=== PATIENT | female | born 1940 | race Caucasian/White ===

== ENCOUNTER 2018-08-07 16:36 | Inpatient (IN) | payer OTHER, MEDICARE ==
--- NOTE | 2018-08-07 16:46 | PDOC ---
Rapid Medical Evaluation Time Seen by Provider: 08/07/18 16:43 Medical Evaluation: Allergies Allergy/AdvReac Type Severity Reaction Status Date / Time Penicillins Allergy Verified 02/14/15 08:30 08/07/18 16:43 I have performed a brief in-person evaluation of this patient. The patient presents with a chief complaint of: dizziness, nausea and vomiting since Tuesday Also reports epigastric pain Pertinent physical exam findings are appears a little pale unlabored breathing abdomen flat, non tender I have ordered the following ekg, labs The patient will proceed to the Ed for further evaluation.
--- NOTE | 2018-08-07 17:24 | PDOC ---
History of Present Illness - General Chief Complaint: Pain Stated Complaint: ABD PAIN Time Seen by Provider: 08/07/18 16:43 Past History - Past Medical History Allergies/Adverse Reactions: Allergies Allergy/AdvReac Type Severity Reaction Status Date / Time Penicillins Allergy Verified 08/07/18 16:43 Home Medications: Ambulatory Orders Alprazolam [Xanax] 0.5 mg PO HS PRN #0 tablet 02/20/15 Amlodipine Besylate [Norvasc -] 5 mg PO DAILY #30 tablet 02/20/15 Ceftriaxone [Rocephin -] 1 gm IVPB DAILY #0 vial 02/20/15 Metoprolol Tartrate [Lopressor -] 25 mg PO BID #60 tablet 02/20/15 Sertraline HCl [Zoloft -] 100 mg PO DAILY #0 tablet 02/20/15 Anemia: No Asthma: No Cancer: No Cardiac Disorders: No COPD: No CHF: No Dementia: No Diabetes: No GI Disorders: Yes Disorders: Yes (incontinent) HTN: Yes Hypercholesterolemia: Yes Liver Disease: No Psychiatric Problems: Yes (depression,anxeity) Seizures: No Thyroid Disease: No - Surgical History Appendectomy: Yes Cholecystectomy: Yes - Suicide/Smoking/Psychosocial Hx Smoking History: Never smoked Have you smoked in the past 12 months: No Information on smoking cessation initiated: No Hx Alcohol Use: No Drug/Substance Use Hx: No Substance Use Type: None Hx Substance Use Treatment: No *Physical Exam - Vital Signs Last Vital Signs Temp Pulse Resp BP Pulse Ox 98.6 F 97 H 18 93/58 L 100 08/07/18 16:45 08/07/18 16:45 08/07/18 16:45 08/07/18 16:45 08/07/18 16:45 *DC/Admit/Observation/Transfer - Referrals Referrals: Jorge Kern MD [Primary Care Provider] - - Patient Instructions - Post Discharge Activity
--- NOTE | 2018-08-07 17:26 | PDOC ---
Attending Attestation - Resident Resident Name: SidneyHiro - ED Attending Attestation I have performed the following: I have examined & evaluated the patient, The case was reviewed & discussed with the resident, I agree w/resident's findings & plan, Exceptions are as noted - Medical Decision Making 08/07/18 17:26 I, Dr. Ilene Mujica, DO, attest that this document has been prepared under my direction and personally reviewed by me in its entirety. I further attest, that it accurately reflects all work, treatment, procedures and medical decision -making performed by me. 08/07/18 18:09 a/p: 78yo female with fever since tuesday and lower abd pain -hx of ascending cholangitis in the past -today with lower abd pain/R cva ttp -outpt labs shows wbc 22/uti/harry -concern for pyelo -will send ucx/blood cx -will admit for iv abx -discussed with Dr. Martinez who is admitting to dr. reed today -call placed to Dr. Reed 08/07/18 18:[address] Reed who accepts pt to service <Ilene Mujica - Last Filed: 08/07/18 18:17> - HPI HPI: 08/07/18 18:31 The patient is a 78 year old female, with a significant past medical history of hypertension and frequent UTIs, who presents to the emergency department with, 3 days of abdominal pain, lightheadedness, and dizziness. She describes her abdominal pain as suprapubic, sharp radiating to right flank. Patients son notes she had one episode of a fever 3 days ago with a Tmax of 102 degrees F which was resolved with Tylenol. Her last BM was today and noted to be darker than usual. The patient saw her PCP, Dr. Kern, and had outpatient labs done. She had a white count of 22, prompting her visit to the ER. She denies recent fevers, chills, or headache. She denies recent vomit, diarrhea or constipation. She denies recent dysuria, frequency, urgency or hematuria. She denies recent chest pain or shortness of breath. Allergies: Penicillins. Social history: Nonsmoker. Denies EtOH use and recreational drug use. Primary Care Physician: Dr. Jorge Kern - Physicial Exam PE: 08/07/18 18:32 Constitutional: Awake, alert, oriented. No acute distress. Head: Normocephalic. Atraumatic Eyes: PERRL. EOMI. Conjunctivae are not pale. ENT: Mucous membranes are moist and intact. Posterior pharynx without exudates or erythema. Uvula midline. Neck: Supple. Full ROM. No lymphadenopathy. Cardiovascular: Regular rate. Regular rhythm. S1, S2 regular. Distal pulses are 2+ and symmetric. Pulmonary/Chest: No evidence of respiratory distress. Clear to auscultation bilaterally No wheezing, rales or rhonchi. +Abdominal: Suprapubic tenderness. Thin. Soft and non-distended. No rebound, guarding or rigidity. No organomegaly. No palpable masses. Good bowel sounds. +Back: Right sided CVA tenderness. Rectal: Refer to resident Dr. Hiro Little's exam. Musculoskeletal: No edema. No cyanosis. No clubbing. Full range of motion in all extremities. No calf tenderness. Radial/pedal pulses are intact and 2+ bilaterally Skin: Skin is warm and dry. No petechiae. No purpura. Neurological: Alert and oriented to person, place, and time. Cranial nerves II -XII are grossly intact. Normal speech. Strength is grossly symmetric. No sensory deficits. Psychiatric: Good eye contact. Normal interaction, affect and behavior. <Osmar Fragoso - Last Filed: 08/07/18 18:33> Discharge Disposition - Discharge Dispostion Last Admission D/C Date: 02/20/15 Decision to Admit order: Yes <Ilene Mujica - Last Filed: 08/07/18 18:17> <Osmar Fragoso - Last Filed: 08/07/18 18:33> - Diagnosis Sepsis, Pyelonephritis - Discharge Dispostion Condition at time of disposition: Guarded - Referrals Referrals: Jorge Kern MD [Primary Care Provider] - - Patient Instructions - Post Discharge Activity Heart Score/ECG Review - ECG Intrepretation Comment:: 08/07/18 18:17 sinus, pacs, q waves septally, no acute st/t wave findings <Ilene Mujica - Last Filed: 08/07/18 18:17> Attestations - Attestations 08/07/18 18:32 Documentation prepared by Osmar Fragoso, acting as medical billing assistant for Ilene Mujica DO. <Osmar Fragoso - Last Filed: 08/07/18 18:33>
[2018-08-07] MEDS ORDERED: SODIUM CHLORIDE 1,000 ML IV STA ×2 (17:50→18:08)
[2018-08-07] MEDS ORDERED: CEFTRIAXONE 1,000 MG in DEXTROSE 5%-WATER - 50 ML IVPB ONE (18:09)
--- NOTE | 2018-08-07 18:19 | PDOC ---
History of Present Illness - General Chief Complaint: Pain Stated Complaint: ABD PAIN Time Seen by Provider: 08/07/18 16:43 History Source: Patient, Family (son translating) Past History - Past Medical History Allergies/Adverse Reactions: Allergies Allergy/AdvReac Type Severity Reaction Status Date / Time Penicillins Allergy Verified 08/07/18 16:43 Home Medications: Ambulatory Orders Alprazolam [Xanax] 0.5 mg PO HS PRN #0 tablet 02/20/15 Amlodipine Besylate [Norvasc -] 5 mg PO DAILY #30 tablet 02/20/15 Ceftriaxone [Rocephin -] 1 gm IVPB DAILY #0 vial 02/20/15 Metoprolol Tartrate [Lopressor -] 25 mg PO BID #60 tablet 02/20/15 Sertraline HCl [Zoloft -] 100 mg PO DAILY #0 tablet 02/20/15 Anemia: No Asthma: No Cancer: No Cardiac Disorders: No COPD: No CHF: No Dementia: No Diabetes: No GI Disorders: Yes Disorders: Yes (incontinent) HTN: Yes Hypercholesterolemia: Yes Liver Disease: No Psychiatric Problems: Yes (depression,anxeity) Seizures: No Thyroid Disease: No - Surgical History Appendectomy: Yes Cholecystectomy: Yes - Suicide/Smoking/Psychosocial Hx Smoking History: Never smoked Have you smoked in the past 12 months: No Information on smoking cessation initiated: No Hx Alcohol Use: No Drug/Substance Use Hx: No Substance Use Type: None Hx Substance Use Treatment: No Review of Systems - Review of Systems Constitutional: Yes: Fever Respiratory: No: Shortness of Breath Cardiac (ROS): No: Chest Pain, Palpitations ABD/GI: Yes: Constipated (chronic), Nausea, Poor Appetite, Other (dark stools since Tuesday). No: Diarrhea, Vomiting : Yes: Flank Pain (right sided). No: Burning, Dysuria, Frequency, Hematuria Musculoskeletal: Yes: Back Pain (right sided) Neurological: Yes: Weakness (generalized) *Physical Exam - Vital Signs Last Vital Signs Temp Pulse Resp BP Pulse Ox 98.6 F 97 H 18 93/58 L 100 08/07/18 16:45 08/07/18 16:45 08/07/18 16:45 08/07/18 16:45 08/07/18 16:45 - Physical Exam General Appearance: Yes: Nourished, Appropriately Dressed, Apparent Distress HEENT: positive: EOMI Respiratory/Chest: positive: Lungs Clear, Normal Breath Sounds. negative: Crackles Cardiovascular: positive: Regular Rhythm, Regular Rate, S1, S2. negative: Edema , JVD, Murmur Vascular Pulses: Dorsalis-Pedis (R): 4+, Doralis-Pedis (L): 4+ Gastrointestinal/Abdominal: positive: Flat, Soft, Tenderness (suprapubic and RLQ ). negative: Pulsatile Mass, Distended, Guarding, Rebound Rectal Exam: positive: heme negative stool, normal exam. negative: decreased tone, hemorrhoids Musculoskeletal: positive: CVA Tenderness (right sided) Integumentary: positive: Normal Color, Dry, Warm. negative: Jaundice Neurologic: positive: Fully Oriented, Alert, Normal Mood/Affect, Normal Response ED Treatment Course - ADDITIONAL ORDERS Additional order review: Laboratory Results 08/07/18 17:30 Stool Occult Blood Negative - RADIOLOGY Radiology Studies Ordered: Category Date Time Status SPIRAL- RENAL-STONE CT [CT] Stat CT Scan 08/07/18 18:12 Ordered CHEST X-RAY PORTABLE* [RAD] Stat Radiology 08/07/18 18:07 Ordered *DC/Admit/Observation/Transfer Diagnosis at time of Disposition: Pyelonephritis Sepsis Qualifiers: Sepsis type: sepsis due to unspecified organism Qualified Code(s): A41.9 - Sepsis, unspecified organism - Discharge Dispostion Condition at time of disposition: Guarded Decision to Admit order: Yes - Referrals Referrals: Jorge Kern MD [Primary Care Provider] - - Patient Instructions - Post Discharge Activity
[2018-08-07] MEDS ORDERED: CEFTRIAXONE 1 GM/50 ML BAG ONE (18:27)
[2018-08-07] MEDS ORDERED: KCL 10 MEQ IVPB 10 MEQ/100 ML INFUS.BAG IVPB ONE (20:22)
[2018-08-07] MEDS: POTASSIUM CHLORIDE 10 MEQ in DEXTROSE 5%-NORMAL SALINE 1,000 ML IVPB SCH (20:33)
[2018-08-07] MEDS: ALPRAZolam 0.25 MG TABLET PO SCH (22:33)
[2018-08-07] MEDS ORDERED: ALPRAZolam 0.25 MG TABLET ONE (22:34)
[2018-08-08 07:24] LABS: HEMATOCRIT 33.1 % (32.4-45.2); HEMOGLOBIN 10.9 GM/dL (10.7-15.3); MCH 31.2 pg (25.7-33.7); MEAN CELL VOLUME 94.6 fl (80-96); MEAN PLT VOLUME 9.8 fl (7.5-11.1); PLATELET COUNT 92 K/MM3 (134-434); RDW 14.2 % (11.6-15.6); WHITE BLOOD COUNT 24.6 K/mm3 (4.0-10.0)
[2018-08-08 07:54] LABS: ALBUMIN 2.6 g/dl (3.4-5.0); ALK PHOS 101 U/L (45-117); ANION GAP 11 MMOL/L (8-16); BILIRUBIN,TOTAL 0.6 mg/dL (0.2-1); BLOOD UREA NITROGEN 55 mg/dL (7-18); CALCIUM 8.2 mg/dL (8.5-10.1); CHLORIDE 108 mmol/L (98-107); CO2 21 mmol/L (21-32); CREATININE 2.1 mg/dL (0.55-1.3); GLUCOSE,RANDOM 65 mg/dL (74-106); POTASSIUM 3.2 mmol/L (3.5-5.1); SGOT/AST 41 U/L (15-37); SGPT/ALT 79 U/L (13-61); SODIUM 140 mmol/L (136-145); TOT PROT 5.4 g/dl (6.4-8.2)
[2018-08-08] MEDS ORDERED: VANCOMYCIN 1 GRAM (PRE-DOCKED) 1,000 MG/250 ML BAG IVPB ONE ×2 (08:48→09:13)
[2018-08-08] MEDS ORDERED: POTASSIUM CHLORIDE TABS 20 MEQ TABLET.ER (FP) PO ONE ×2 (09:15→09:32)
[2018-08-08] MEDS ORDERED: CEFTRIAXONE 1 GM in DEXTROSE 5%-WATER - 50 ML IVPB SCH (10:00)
[2018-08-08] MEDS ORDERED: ALPRAZolam 0.25 MG TABLET ONE (11:32)
[2018-08-08] MEDS: ALPRAZolam 0.25 MG TABLET PO SCH ×2 (11:43→21:08)
[2018-08-08] MEDS ORDERED: CEFTRIAXONE 1 GM in DEXTROSE 5%-WATER - 100 ML IVPB ONE (12:12)
--- NOTE | 2018-08-08 12:12 | PN ---
Progress Note (short form) - Note Progress Note: ID Consult dictated Gram Negative bacteremia/ sepsis secondary to source UTI Leukocytosis/ thrombocytopenia secondary to sepsis PCN allergy Pending c/s empiric ceftriaxone
[2018-08-08] MEDS: CEFTRIAXONE 2 GM in DEXTROSE 5%-WATER 100 ML IVPB SCH (12:53)
--- NOTE | 2018-08-08 13:00 | CONS ---
DATE OF CONSULTATION: DATE OF DICTATION: 08/08/2018 HISTORY: The patient is an 78-year-old female who is evaluated for gram-negative sepsis. She presented to the hospital with complaints of abdominal pain, nausea, vomiting, dizziness, and fever for approximately 2 days prior to admission. In the emergency room, she was noted to have suprapubic and flank pain. A CT scan of the abdomen and pelvis was performed and showed right hydronephrosis without an obstructing stone visualized. In addition, there were multiple bilateral nonobstructing stones. Her course was complicated by low-grade fever, markedly elevated white blood cell count, and thrombocytopenia. At the present time, she is awake and alert. She is Malay speaking. She complains of suprapubic and bilateral flank pain. She denies any dysuria or hematuria. According to the notes, she has had a history of urinary tract infections in the past. She is status post cholecystectomy. She was hospitalized in 2015 with gram-negative sepsis secondary to biliary tract source. PAST MEDICAL HISTORY: Positive for hypertension, recurrent urinary tract infections, hyperlipidemia, osteoporosis, anxiety, depression. PAST SURGICAL HISTORY: Status post appendectomy and cholecystectomy. ALLERGIES: PENICILLIN. She had developed a rash limited to the left upper extremity years ago after receiving PENICILLIN. MEDICATIONS: Include Xanax, Norvasc, Lopressor, Zoloft. SOCIAL HISTORY: Lives at home. She is Malay speaking. She is nonsmoker, nondrinker. SYSTEMS REVIEW: Neurologic: No loss of consciousness, seizure activity, focal weakness. Cardiac: Negative chest pain or palpitations. Respiratory: Negative cough or sputum production. Gastrointestinal: Positive for nausea and vomiting. No diarrhea. Genitourinary: As per HPI. LABORATORY DATA: White blood cell count 24.6, hematocrit 33.1, platelet count 92, BUN 55, creatinine 2.1, total bilirubin 0.6, alkaline phosphatase 101, AST 41. Chest x-ray negative for acute infiltrate. PHYSICAL EXAMINATION: General: She is an elderly female. She is supine on the stretcher in the emergency room. She is in no acute distress. Not acutely toxic appearing. Vital Signs: Temperature 99, blood pressure 106/55, pulse 72 and regular, respirations 18 per minute. HEENT: Sclerae anicteric. Dry mucous membranes. Heart: Sounds S1, S2. Lungs: Clear. Abdomen: Soft. There is suprapubic tenderness and slight bilateral flank tenderness to palpation. Extremities: Negative for edema. IMPRESSION: 1. Gram-negative bacteremia, sepsis secondary to urinary tract source. 2. Urinary tract infection. 3. Marked leukocytosis. 4. Thrombocytopenia likely secondary to sepsis. 5. PENICILLIN allergy. 6. Renal insufficiency. PLAN: Pending sepsis workup. Continue empiric ceftriaxone. Previous blood and urine cultures have grown Escherichia coli sensitive to ceftriaxone. She has tolerated cephalosporins in the past. We will follow. Thank you for the kind referral. KATIE SO M.D. [id number]
--- NOTE | 2018-08-08 16:28 | HP ---
Admitting History and Physical - Primary Care Physician PCP: Zac Scott - Admission Chief Complaint: nausea & Vomiting w/ weakness History of Present Illness: 78 YOF community dweling w/ Hx of UTI; Htn; renal stones who began to feel ill on 08/06/18, consisting of malaise, n-v, progressing weakness. This was a marked change from baseline though she suffers fom chronic abd pains well known to her PCP. She has past Hx of renal stones & UTI (2nd E Coli), and was determined to have mesenteric ischemia (the cause of her abd pains)> She was admitted a year ago for what was described as ascending cholangitis but this was not demonstrated on MRCP. She declined to have a ERCP at the time. She c/o some low back pains, perhaps some dysuria. She eats poorly at her baseline. 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 Suazo 2011), Upper Endoscopy - Smoking History Smoking history: Never smoked Have you smoked in the past 12 months: No - Alcohol/Substance Use Hx Alcohol Use: No - Social History Usual Living Arrangement: Yes: With Spouse ADL: Independent History of Recent Travel: No Other Social History: lives on her own with family support (help in shopping); she cares for her demented . Home Medications - Allergies Allergies/Adverse Reactions: Allergies Allergy/AdvReac Type Severity Reaction Status Date / Time Penicillins Allergy Verified 08/07/18 16:43 - Home Medications Home Medications: Ambulatory Orders Alprazolam [Xanax] 0.5 mg PO HS PRN #0 tablet 02/20/15 Amlodipine Besylate [Norvasc -] 5 mg PO DAILY #30 tablet 02/20/15 Sertraline HCl [Zoloft -] 100 mg PO DAILY #0 tablet 02/20/15 Aspirin [Aspirin EC] 81 mg PO DAILY 08/07/18 Atorvastatin Ca [Lipitor] 20 mg PO HS 08/07/18 Family Disease History - Family Disease History Family Disease History: Other: Father (TB at 40yrs ), Mother (Intestinal disease 59yrs) Review of Systems - Review of Systems Constitutional: reports: Malaise Eyes: reports: No Symptoms HENT: reports: No Symptoms Neck: reports: No Symptoms Cardiovascular: reports: No Symptoms Respiratory: reports: No Symptoms Gastrointestinal: reports: Abdominal Pain, Vomiting Genitourinary: reports: Flank Pain Breasts: reports: No Symptoms Reported Musculoskeletal: reports: Back Pain Integumentary: reports: No Symptoms Neurological: reports: No Symptoms Endocrine: reports: No Symptoms Hematology/Lymphatic: reports: No Symptoms Psychiatric: reports: Anxiety Physical Examination Vital Signs: Vital Signs Temperature 99.4 F 08/08/18 15:42 Pulse Rate 74 08/08/18 15:42 Respiratory Rate 18 08/08/18 15:42 Blood Pressure 140/79 08/08/18 15:42 O2 Sat by Pulse Oximetry (%) 98 08/08/18 15:42 Findings/Remarks: found in ER bed-awake; anxious but alert skin--no discoloration; rash head--NC eyes--midline; EOMI; anicteric oral--mucosal with normal appearance/moisture; no lesions appreciated neck--supple, no masses, nodes, bruits lungs--dimnished BS; grossly clear heart--RR breasts--(deferred to PCP) abd--soft, BS+, old surg scars; + epigastric non young tenderness; no HSM back--no definite CVAT ext--no CCE; ROM painless; no gross limits; no deformities; DP's 2+ in both feet ; no atrophy neuro--awake; alert; responsive, good eye contact; speech seemed fluent & coherent; purposeful movements of all Extrems. No gross motor/sensory deficits; no path reflexes noted; no tremors or gross rigidity; mood anxious Labs: CBC, BMP 08/08/18 06:25 08/08/18 06:25 Laboratory Tests 08/07/18 08/07/18 08/08/18 17:30 18:00 06:25 WBC 24.6 H RBC 3.50 L Hgb 10.9 Hct 33.1 MCV 94.6 MCH 31.2 MCHC 33.0 RDW 14.2 Plt Count 92 L MPV 9.8 Sodium Potassium Chloride Carbon Dioxide Anion Gap BUN Creatinine Creat Clearance w eGFR Random Glucose Lactic Acid 1.6 Calcium Total Bilirubin AST ALT Alkaline Phosphatase Total Protein Albumin Stool Occult Blood Negative 08/08/18 06:25 WBC RBC Hgb Hct MCV MCH MCHC RDW Plt Count MPV Sodium 140 Potassium 3.2 L Chloride 108 H Carbon Dioxide 21 Anion Gap 11 BUN 55 H Creatinine 2.1 H Creat Clearance w eGFR 22.66 Random Glucose 65 L Lactic Acid Calcium 8.2 L Total Bilirubin 0.6 AST 41 H ALT 79 H Alkaline Phosphatase 101 Total Protein 5.4 L Albumin 2.6 L Stool Occult Blood Imaging - Results Chest X-ray: Report Reviewed Cat Scan: Report Reviewed Problem List - Problems (1) Neutrophilic leukocytosis Assessment/Plan: in connection with state of infection; source being the urine: PLAN: cultures obtained and will get IV ABS Code(s): D72.9 - DISORDER OF WHITE BLOOD CELLS, UNSPECIFIED (2) UTI (urinary tract infection), bacterial Assessment/Plan: previously due to GM negative organism that was sensitive to conventional Abs. PLAN: IV Rocephin for now Code(s): N39.0 - URINARY TRACT INFECTION, SITE NOT SPECIFIED; A49.9 - BACTERIAL INFECTION, UNSPECIFIED (3) Bacteremia Assessment/Plan: gram negative organism; type to be determined PLAN: ID eval Code(s): R78.81 - BACTEREMIA (4) Hypertension Assessment/Plan: BP now low; will hold BP lowering drugs Code(s): I10 - ESSENTIAL (PRIMARY) HYPERTENSION Qualifiers: Hypertension type: essential hypertension Qualified Code(s): I10 - Essential (primary) hypertension (5) Renal insufficiency Assessment/Plan: with superimposed dehydration; PLAN: IVF Code(s): N28.9 - DISORDER OF KIDNEY AND URETER, UNSPECIFIED (6) Hyponatremia Assessment/Plan: corrected Code(s): E87.1 - HYPO-OSMOLALITY AND HYPONATREMIA (7) Hypokalemia Assessment/Plan: perhaps due to insufficient fluid intake; together with vomiting; PLAN: replenish Code(s): E87.6 - HYPOKALEMIA (8) Thrombocytopenia Assessment/Plan: about 90K today;perhaps due to state of infection; will follow Code(s): D69.6 - THROMBOCYTOPENIA, UNSPECIFIED (9) Renal calculi Assessment/Plan: non obstructing as demonstrated on abd CT. She has long Hx of recurrent stones and was seen by Urology (Stan) in the past Code(s): N20.0 - CALCULUS OF KIDNEY (10) Hydronephrosis Assessment/Plan: minimal if mild on Rt ureter (see CT report) Code(s): N13.30 - UNSPECIFIED HYDRONEPHROSIS Qualifiers: Hydronephrosis type: unspecified Qualified Code(s): N13.30 - Unspecified hydronephrosis (11) Pain, abdominal, epigastric Assessment/Plan: more so when palpated; but does c/o episodic abd pains perhaps worse when she eats to suggest mesenteric insufficiency Code(s): R10.13 - EPIGASTRIC PAIN (12) Elevated liver enzymes Assessment/Plan: not new; has hx of questionable cholangitis; but is also on statin; which will be held. Abd CT does not show any striking abdormalities inthe liver Code(s): R74.8 - ABNORMAL LEVELS OF OTHER SERUM ENZYMES (13) Lipidemia Assessment/Plan: has been on statin which will now be held given high LFTs Code(s): E78.5 - HYPERLIPIDEMIA, UNSPECIFIED Qualifiers: Hyperlipidemia type: unspecified Qualified Code(s): E78.5 - Hyperlipidemia , unspecified (14) Protein calorie malnutrition Assessment/Plan: is under weight; eats poorly; and has low serum proteins Code(s): E46 - UNSPECIFIED PROTEIN-CALORIE MALNUTRITION Qualifiers: Protein-calorie malnutrition severity: mild Qualified Code(s): E44.1 - Mild protein-calorie malnutrition (15) Anxiety and depression Assessment/Plan: has been given Xanax & Zoloft. Will stop Zoloft given its anorectic effects Code(s): F41.8 - OTHER SPECIFIED ANXIETY DISORDERS (16) Feeding difficulty Assessment/Plan: may be due to chronic GI pains; GERD; and depressive dz. Code(s): R63.3 - FEEDING DIFFICULTIES (17) Multiple thyroid nodules Assessment/Plan: on previous US; affecting the Rt lobe; is euthyroid with NL TSH. Code(s): E04.2 - NONTOXIC MULTINODULAR GOITER Assessment/Plan weak debilitated 78 YOF with bacteremia & likely sepsis ~~~~~~~~~~~~~~~~~~~~~~~~~~~~~~~~~ Dr Scott
[2018-08-08] MEDS ORDERED: PT OWN MED DRAWER 7, Y5N ONE (17:07)
[2018-08-08] MEDS: POTASSIUM CHLORIDE 10 MEQ in DEXTROSE 5%-NORMAL SALINE 1,000 ML IVPB SCH ×2 (17:10→17:39)
[2018-08-08] MEDS ORDERED: PNEUMOC 13-VAL CONJ-DIP CRM/PF 0.5 ML DISP.SYRIN IM ONE (17:15)
[2018-08-08] MEDS: amLODIPine BESYLATE 2.5 MG TABLET (FP) PO SCH (18:25)
[2018-08-08] MEDS: AMINO ACIDS/PROTEIN HYDROLYS 30 ML LIQUID.PKT PO SCH (18:25)
[2018-08-09 07:28] LABS: HEMATOCRIT 28.6 % (32.4-45.2); HEMOGLOBIN 9.4 GM/dL (10.7-15.3); MCHC 32.9 g/dl (32.0-36.0); MEAN CELL VOLUME 94.3 fl (80-96); PLATELET COUNT 85 K/MM3 (134-434); RBC 3.04 M/mm3 (3.60-5.2); RDW 14.1 % (11.6-15.6); WHITE BLOOD COUNT 15.8 K/mm3 (4.0-10.0)
[2018-08-09 07:40] LABS: ALBUMIN 2.1 g/dl (3.4-5.0); ALK PHOS 98 U/L (45-117); ANION GAP 8 MMOL/L (8-16); BILIRUBIN,TOTAL 0.3 mg/dL (0.2-1); BLOOD UREA NITROGEN 34 mg/dL (7-18); CALCIUM 7.6 mg/dL (8.5-10.1); CHLORIDE 112 mmol/L (98-107); CO2 22 mmol/L (21-32); CREATININE 1.5 mg/dL (0.55-1.3); GLUCOSE,RANDOM 99 mg/dL (74-106); POTASSIUM 3.5 mmol/L (3.5-5.1); SGOT/AST 26 U/L (15-37); SGPT/ALT 51 U/L (13-61); SODIUM 142 mmol/L (136-145); TOT PROT 4.8 g/dl (6.4-8.2)
--- NOTE | 2018-08-09 09:53 | EKG ---
Test Reason : Blood Pressure : / mmHG Vent. Rate : 091 BPM Atrial Rate : 091 BPM P-R Int : 162 ms QRS Dur : 074 ms QT Int : 364 ms P-R-T Axes : 051 -09 052 degrees QTc Int : 447 ms SINUS RHYTHM WITH PREMATURE SUPRAVENTRICULAR COMPLEXES SEPTAL INFARCT (CITED ON OR BEFORE 14-FEB-2015) ABNORMAL ECG WHEN COMPARED WITH ECG OF 14-FEB-2015 09:29, PREMATURE SUPRAVENTRICULAR COMPLEXES ARE NOW PRESENT Confirmed by TRE EVANS, NESTOR ([id number]) on 08/09/2018 9:53:19 AM Referred By: Confirmed By:NESTOR TOLEDO MD
[2018-08-09] MEDS: PANTOPRAZOLE 40 MG TABLET (FP) PO SCH (10:07)
[2018-08-09] MEDS: amLODIPine BESYLATE 2.5 MG TABLET (FP) PO SCH (10:07)
[2018-08-09] MEDS: ESCITALOPRAM OXALATE 20 MG TABLET (FP) PO SCH (10:07)
[2018-08-09] MEDS: POTASSIUM CHLORIDE 10 MEQ in DEXTROSE 5%-NORMAL SALINE 1,000 ML IVPB SCH ×3 (10:07→23:52)
[2018-08-09] MEDS: AMINO ACIDS/PROTEIN HYDROLYS 30 ML LIQUID.PKT PO SCH ×2 (10:07→18:22)
[2018-08-09] MEDS: ALPRAZolam 0.25 MG TABLET PO SCH ×2 (10:07→22:10)
--- NOTE | 2018-08-09 10:09 | PN ---
Progress Note, Physician History of Present Illness: Awake, alert C/O epigastric pain which according to son is chronic in nature No c/o dysuria No fever/ chills BC LF Tolerating cephalosporin w/o adverse rxn - Current Medication List Current Medications: Active Medications Alprazolam (Xanax -) 0.25 mg PO BID [facility] Last Admin: 08/08/18 21:08 Dose: 0.25 mg Amino Acids (Prosource No Carb Liquid Pkt) 30 ml PO BID@0800,1730 [facility] Last Admin: 08/08/18 18:25 Dose: 30 ml Amlodipine Besylate (Norvasc -) 2.5 mg PO DAILY [facility] Last Admin: 08/08/18 18:25 Dose: 2.5 mg Escitalopram Oxalate (Lexapro -) 20 mg PO DAILY [facility] Ceftriaxone Sodium 2 gm/ (Dextrose) 100 mls @ 200 mls/hr IVPB DAILY [facility]; Protocol Last Admin: 08/08/18 12:53 Dose: 200 mls/hr Potassium Chloride 10 meq/ (Dextrose/Sodium Chloride) 1,005 mls @ 75 mls/hr IVPB Q13H [facility] Last Admin: 08/08/18 17:39 Dose: 75 mls/hr Pantoprazole Sodium (Protonix -) 40 mg PO DAILY [facility] - Objective Vital Signs: Vital Signs Temperature 98.1 F 08/09/18 06:00 Pulse Rate 62 08/09/18 06:00 Respiratory Rate 18 08/09/18 06:00 Blood Pressure 112/63 08/09/18 06:00 O2 Sat by Pulse Oximetry (%) 98 08/08/18 15:42 Constitutional: Yes: No Distress Eyes: Yes: Conjunctiva Clear Cardiovascular: Yes: Regular Rate and Rhythm, S1, S2 Respiratory: Yes: CTA Bilaterally Gastrointestinal: Yes: Normal Bowel Sounds, Soft, Other (no suprapubic tenderness). No: Tenderness Genitourinary: Yes: CVA Tenderness - Right Edema: No Labs: CBC, BMP 08/09/18 06:30 08/09/18 06:30 Assessment/Plan Gram Negative bacteremia/ sepsis UTI/sepsis secondary to source Leukocytosis improved Thrombocytopenia Azotemia- improved PCN allergy Await c/s Continue empiric ceftriaxone
[2018-08-09] MEDS: CEFTRIAXONE 2 GM in DEXTROSE 5%-WATER 100 ML IVPB SCH (12:36)
--- NOTE | 2018-08-09 16:12 | PN ---
Progress Note (short form) - Note Progress Note: Current Medications Acetaminophen (Tylenol -) 650 mg PO Q6H PRN PRN Reason: PAIN SCALE 1-5 Alprazolam (Xanax -) 0.25 mg PO BID [facility] Last Admin: 08/09/18 10:07 Dose: 0.25 mg Amino Acids (Prosource No Carb Liquid Pkt) 30 ml PO BID@0800,1730 [facility] Last Admin: 08/09/18 10:07 Dose: 30 ml Amlodipine Besylate (Norvasc -) 2.5 mg PO DAILY [facility] Last Admin: 08/09/18 10:07 Dose: 2.5 mg Docusate Sodium (Colace -) 100 mg PO BID [facility] Escitalopram Oxalate (Lexapro -) 20 mg PO DAILY [facility] Last Admin: 08/09/18 10:07 Dose: 20 mg Ceftriaxone Sodium 2 gm/ (Dextrose) 100 mls @ 200 mls/hr IVPB DAILY [facility]; Protocol Last Admin: 08/09/18 12:36 Dose: 200 mls/hr Potassium Chloride 10 meq/ (Dextrose/Sodium Chloride) 1,005 mls @ 75 mls/hr IVPB Q13H [facility] Last Admin: 08/09/18 10:07 Dose: Not Given Pantoprazole Sodium (Protonix -) 40 mg PO DAILY [facility] Last Admin: 08/09/18 10:07 Dose: 40 mg Laboratory Results - last 24 hr 08/09/18 08/09/18 06:30 06:30 WBC 15.8 H RBC 3.04 L Hgb 9.4 L Hct 28.6 L MCV 94.3 MCH 31.0 MCHC 32.9 RDW 14.1 Plt Count 85 L MPV 10.0 Sodium 142 Potassium 3.5 Chloride 112 H Carbon Dioxide 22 Anion Gap 8 BUN 34 H Creatinine 1.5 H Creat Clearance w eGFR 33.41 Random Glucose 99 Calcium 7.6 L Total Bilirubin 0.3 AST 26 ALT 51 Alkaline Phosphatase 98 Total Protein 4.8 L Albumin 2.1 L Vital Signs Temperature 98.5 F 08/09/18 14:29 Pulse Rate 68 08/09/18 14:29 Respiratory Rate 18 08/09/18 14:29 Blood Pressure 115/62 08/09/18 14:29 O2 Sat by Pulse Oximetry (%) 97 08/09/18 09:00 CC; some abd pain (not new) ``````````````````````````` skin--good color eyes--anicteric heart--RR lungs--clear abd--soft, BS+ ext--no edema neuro--alert, lucid; speech is clear; moves all extrem's ````````````````````````````````````````````````` Summ > Gm neg sepsis--seems to be under control; sensitivities are pending; cont IV Ceph (see ID note) > Htn--BP okay now > dehydration--improved renal functions w/ IVF; cont IVF > Anemia--drop from 08/08; possibly dilutional; will check Iron; B12; stools > Low PLT--since admission; count still sufficiently high; will follow daily > abd pain--chronic? due to longstanding mesenteric ischemia > High LFTs--resolved; is off statin ~~~~~~~~~~~~~~~~~~~ Dr Scott Problem List - Problems (1) Neutrophilic leukocytosis Code(s): D72.9 - DISORDER OF WHITE BLOOD CELLS, UNSPECIFIED (2) UTI (urinary tract infection), bacterial Code(s): N39.0 - URINARY TRACT INFECTION, SITE NOT SPECIFIED; A49.9 - BACTERIAL INFECTION, UNSPECIFIED (3) Bacteremia Code(s): R78.81 - BACTEREMIA (4) Hypertension Code(s): I10 - ESSENTIAL (PRIMARY) HYPERTENSION Qualifiers: Hypertension type: essential hypertension Qualified Code(s): I10 - Essential (primary) hypertension (5) Renal insufficiency Code(s): N28.9 - DISORDER OF KIDNEY AND URETER, UNSPECIFIED (6) Hyponatremia Code(s): E87.1 - HYPO-OSMOLALITY AND HYPONATREMIA (7) Hypokalemia Code(s): E87.6 - HYPOKALEMIA (8) Thrombocytopenia Code(s): D69.6 - THROMBOCYTOPENIA, UNSPECIFIED (9) Renal calculi Code(s): N20.0 - CALCULUS OF KIDNEY (10) Hydronephrosis Code(s): N13.30 - UNSPECIFIED HYDRONEPHROSIS Qualifiers: Hydronephrosis type: unspecified Qualified Code(s): N13.30 - Unspecified hydronephrosis (11) Pain, abdominal, epigastric Code(s): R10.13 - EPIGASTRIC PAIN (12) Elevated liver enzymes Code(s): R74.8 - ABNORMAL LEVELS OF OTHER SERUM ENZYMES (13) Lipidemia Code(s): E78.5 - HYPERLIPIDEMIA, UNSPECIFIED Qualifiers: Hyperlipidemia type: unspecified Qualified Code(s): E78.5 - Hyperlipidemia , unspecified (14) Protein calorie malnutrition Code(s): E46 - UNSPECIFIED PROTEIN-CALORIE MALNUTRITION Qualifiers: Protein-calorie malnutrition severity: mild Qualified Code(s): E44.1 - Mild protein-calorie malnutrition (15) Anxiety and depression Code(s): F41.8 - OTHER SPECIFIED ANXIETY DISORDERS (16) Feeding difficulty Code(s): R63.3 - FEEDING DIFFICULTIES (17) Multiple thyroid nodules Code(s): E04.2 - NONTOXIC MULTINODULAR GOITER
[2018-08-09 16:31] VITALS: BMI 19.5
[2018-08-09] MEDS: DOCUSATE SODIUM 100 MG CAPSULE (FP) PO SCH (22:10)
[2018-08-10] MEDS ORDERED: PT OWN MED DRAWER 7, Y5N ONE ×2 (09:10→17:10)
[2018-08-10] MEDS: ESCITALOPRAM OXALATE 20 MG TABLET (FP) PO SCH (09:22)
[2018-08-10] MEDS: ALPRAZolam 0.25 MG TABLET PO SCH ×2 (09:22→22:18)
[2018-08-10] MEDS: amLODIPine BESYLATE 2.5 MG TABLET (FP) PO SCH (09:22)
[2018-08-10] MEDS: POTASSIUM CHLORIDE 10 MEQ in DEXTROSE 5%-NORMAL SALINE 1,000 ML IVPB SCH ×3 (09:22→22:14)
[2018-08-10] MEDS: DOCUSATE SODIUM 100 MG CAPSULE (FP) PO SCH ×2 (09:22→22:18)
[2018-08-10] MEDS: AMINO ACIDS/PROTEIN HYDROLYS 30 ML LIQUID.PKT PO SCH ×2 (09:22→17:11)
[2018-08-10] MEDS: PANTOPRAZOLE 40 MG TABLET (FP) PO SCH (09:23)
[2018-08-10] MEDS: CEFTRIAXONE 2 GM in DEXTROSE 5%-WATER 100 ML IVPB SCH (09:23)
[2018-08-10] MEDS: ACETAMINOPHEN 325 MG TABLET (FP) PO PRN (09:32)
--- NOTE | 2018-08-10 16:38 | PN ---
Progress Note, Physician History of Present Illness: Awake, alert C/O chronic epigastric pain No c/o dysuria No fever/ chills BC E.coli Tolerating cephalosporin w/o adverse rxn - Current Medication List Current Medications: Active Medications Acetaminophen (Tylenol -) 650 mg PO Q6H PRN PRN Reason: PAIN SCALE 1-5 Last Admin: 08/10/18 09:32 Dose: 650 mg Alprazolam (Xanax -) 0.25 mg PO BID [facility] Last Admin: 08/10/18 09:22 Dose: 0.25 mg Amino Acids (Prosource No Carb Liquid Pkt) 30 ml PO BID@0800,1730 [facility] Last Admin: 08/10/18 09:22 Dose: 30 ml Amlodipine Besylate (Norvasc -) 2.5 mg PO DAILY [facility] Last Admin: 08/10/18 09:22 Dose: 2.5 mg Docusate Sodium (Colace -) 100 mg PO BID [facility] Last Admin: 08/10/18 09:22 Dose: 100 mg Escitalopram Oxalate (Lexapro -) 20 mg PO DAILY [facility] Last Admin: 08/10/18 09:22 Dose: 20 mg Ceftriaxone Sodium 2 gm/ (Dextrose) 100 mls @ 200 mls/hr IVPB DAILY [facility]; Protocol Last Admin: 08/10/18 09:23 Dose: 200 mls/hr Potassium Chloride 10 meq/ (Dextrose/Sodium Chloride) 1,005 mls @ 75 mls/hr IVPB Q13H [facility] Last Admin: 08/10/18 09:22 Dose: Not Given Pantoprazole Sodium (Protonix -) 40 mg PO DAILY [facility] Last Admin: 08/10/18 09:23 Dose: 40 mg - Objective Vital Signs: Vital Signs Temperature 98.2 F 08/10/18 14:11 Pulse Rate 62 08/10/18 14:11 Respiratory Rate 18 08/10/18 14:11 Blood Pressure 113/68 08/10/18 14:11 O2 Sat by Pulse Oximetry (%) 97 08/09/18 21:00 Constitutional: Yes: No Distress Eyes: Yes: Conjunctiva Clear Cardiovascular: Yes: Regular Rate and Rhythm, S1, S2 Respiratory: Yes: CTA Bilaterally Gastrointestinal: Yes: Normal Bowel Sounds, Soft, Tenderness, Other (+ epigastric tenderness) Edema: No Labs: CBC, BMP 08/09/18 06:30 10/10/18 06:30 Assessment/Plan Gram Negative bacteremia/ sepsis UTI/sepsis secondary to source Leukocytosis improved Thrombocytopenia Azotemia- improved PCN allergy Continue ceftriaxone
--- NOTE | 2018-08-10 16:54 | PN ---
Progress Note (short form) - Note Progress Note: Current Medications Acetaminophen (Tylenol -) 650 mg PO Q6H PRN PRN Reason: PAIN SCALE 1-5 Last Admin: 08/10/18 09:32 Dose: 650 mg Alprazolam (Xanax -) 0.25 mg PO BID [facility] Last Admin: 08/10/18 09:22 Dose: 0.25 mg Amino Acids (Prosource No Carb Liquid Pkt) 30 ml PO BID@0800,1730 [facility] Last Admin: 08/10/18 09:22 Dose: 30 ml Amlodipine Besylate (Norvasc -) 2.5 mg PO DAILY [facility] Last Admin: 08/10/18 09:22 Dose: 2.5 mg Docusate Sodium (Colace -) 100 mg PO BID [facility] Last Admin: 08/10/18 09:22 Dose: 100 mg Escitalopram Oxalate (Lexapro -) 20 mg PO DAILY [facility] Last Admin: 08/10/18 09:22 Dose: 20 mg Ceftriaxone Sodium 2 gm/ (Dextrose) 100 mls @ 200 mls/hr IVPB DAILY [facility]; Protocol Last Admin: 08/10/18 09:23 Dose: 200 mls/hr Potassium Chloride 10 meq/ (Dextrose/Sodium Chloride) 1,005 mls @ 75 mls/hr IVPB Q13H [facility] Last Admin: 08/10/18 09:22 Dose: Not Given Pantoprazole Sodium (Protonix -) 40 mg PO DAILY [facility] Last Admin: 08/10/18 09:23 Dose: 40 mg Vital Signs Temperature 98.2 F 08/10/18 14:11 Pulse Rate 62 08/10/18 14:11 Respiratory Rate 18 08/10/18 14:11 Blood Pressure 113/68 08/10/18 14:11 O2 Sat by Pulse Oximetry (%) 97 08/09/18 21:00 CC; constipated ``````````````````````````` skin--good color eyes--anicteric heart--RR lungs--clear abd--soft, BS+; minimal tenderness ext--no edema neuro--alert, lucid; speech is clear; moves all extrem's ````````````````````````````````````````````````` Summ > Gm neg Uro-sepsis--fully sensitive E Coli; cont IV Ceph (see ID note); will get Urology eval as well given presence of [place] > constipation--add Miralax > Htn--BP okay now > dehydration--check BUN/Cr; cont IVF > Anemia--dilutional; will check Iron; B12; stools > Low PLT--since admission; count still sufficiently high > abd pain--chronic? due to longstanding mesenteric ischemia > High LFTs--resolved; is off statin for now ~~~~~~~~~~~~~~~~~~~ Dr Tyler Problem List - Problems (1) Neutrophilic leukocytosis Code(s): D72.9 - DISORDER OF WHITE BLOOD CELLS, UNSPECIFIED (2) UTI (urinary tract infection), bacterial Code(s): N39.0 - URINARY TRACT INFECTION, SITE NOT SPECIFIED; A49.9 - BACTERIAL INFECTION, UNSPECIFIED (3) Bacteremia Code(s): R78.81 - BACTEREMIA (4) Hypertension Code(s): I10 - ESSENTIAL (PRIMARY) HYPERTENSION Qualifiers: Hypertension type: essential hypertension Qualified Code(s): I10 - Essential (primary) hypertension (5) Renal insufficiency Code(s): N28.9 - DISORDER OF KIDNEY AND URETER, UNSPECIFIED (6) Hyponatremia Code(s): E87.1 - HYPO-OSMOLALITY AND HYPONATREMIA (7) Hypokalemia Code(s): E87.6 - HYPOKALEMIA (8) Thrombocytopenia Code(s): D69.6 - THROMBOCYTOPENIA, UNSPECIFIED (9) Renal calculi Code(s): N20.0 - CALCULUS OF KIDNEY (10) Hydronephrosis Code(s): N13.30 - UNSPECIFIED HYDRONEPHROSIS Qualifiers: Hydronephrosis type: unspecified Qualified Code(s): N13.30 - Unspecified hydronephrosis (11) Pain, abdominal, epigastric Code(s): R10.13 - EPIGASTRIC PAIN (12) Elevated liver enzymes Code(s): R74.8 - ABNORMAL LEVELS OF OTHER SERUM ENZYMES (13) Lipidemia Code(s): E78.5 - HYPERLIPIDEMIA, UNSPECIFIED Qualifiers: Hyperlipidemia type: unspecified Qualified Code(s): E78.5 - Hyperlipidemia , unspecified (14) Protein calorie malnutrition Code(s): E46 - UNSPECIFIED PROTEIN-CALORIE MALNUTRITION Qualifiers: Protein-calorie malnutrition severity: mild Qualified Code(s): E44.1 - Mild protein-calorie malnutrition (15) Anxiety and depression Code(s): F41.8 - OTHER SPECIFIED ANXIETY DISORDERS (16) Feeding difficulty Code(s): R63.3 - FEEDING DIFFICULTIES (17) Multiple thyroid nodules Code(s): E04.2 - NONTOXIC MULTINODULAR GOITER
[2018-08-10] MEDS: POLYETHYLENE GLYCOL 3350 119 GM BTL PO SCH (17:21)
[2018-08-11] MEDS: POTASSIUM CHLORIDE 10 MEQ in DEXTROSE 5%-NORMAL SALINE 1,000 ML IVPB SCH ×2 (05:37→11:29)
[2018-08-11 08:09] LABS: HEMATOCRIT 30.1 % (32.4-45.2); HEMOGLOBIN 10.1 GM/dL (10.7-15.3); MCH 31.7 pg (25.7-33.7); MCHC 33.7 g/dl (32.0-36.0); MEAN PLT VOLUME 8.9 fl (7.5-11.1); PLATELET COUNT 129 K/MM3 (134-434); RDW 14.2 % (11.6-15.6); WHITE BLOOD COUNT 10.7 K/mm3 (4.0-10.0)
[2018-08-11 08:55] LABS: ANION GAP 7 MMOL/L (8-16); BLOOD UREA NITROGEN 22 mg/dL (7-18); CALCIUM 7.8 mg/dL (8.5-10.1); CHLORIDE 110 mmol/L (98-107); CO2 27 mmol/L (21-32); CREATININE 1.1 mg/dL (0.55-1.3); GLUCOSE,RANDOM 82 mg/dL (74-106); POTASSIUM 3.4 mmol/L (3.5-5.1); SODIUM 144 mmol/L (136-145)
[2018-08-11] MEDS: AMINO ACIDS/PROTEIN HYDROLYS 30 ML LIQUID.PKT PO SCH ×2 (08:57→17:25)
[2018-08-11] MEDS ORDERED: PT OWN MED DRAWER 7, Y5N ONE (09:25)
[2018-08-11] MEDS: DOCUSATE SODIUM 100 MG CAPSULE (FP) PO SCH ×2 (09:41→21:49)
[2018-08-11] MEDS: ESCITALOPRAM OXALATE 20 MG TABLET (FP) PO SCH (09:41)
[2018-08-11] MEDS: POLYETHYLENE GLYCOL 3350 119 GM BTL PO SCH (09:41)
[2018-08-11] MEDS: PANTOPRAZOLE 40 MG TABLET (FP) PO SCH (09:42)
[2018-08-11] MEDS: amLODIPine BESYLATE 2.5 MG TABLET (FP) PO SCH (09:42)
[2018-08-11] MEDS: CEFTRIAXONE 2 GM in DEXTROSE 5%-WATER 100 ML IVPB SCH (09:43)
[2018-08-11] MEDS: ACETAMINOPHEN 325 MG TABLET (FP) PO PRN (09:43)
[2018-08-11] MEDS: ALPRAZolam 0.25 MG TABLET PO SCH (09:44)
--- NOTE | 2018-08-11 16:07 | CON.GU ---
Consult Consult Specialty:: Referred by:: Medicine Reason for Consultation:: hydronephrosis - History of Present Illness Chief Complaint: hydronephrosis History of Present Illness: 78 year old female with recent history of mesenteric ischemia. She returns with back and abdominal pain . Her creatinine was elevated to 2.1 She also has a history of kidney stones. CT reveals minimal right hydroneprhosis. Creatinine has returned to 1.1. 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 Suazo 2011), Upper Endoscopy - Alcohol/Substance Use Hx Alcohol Use: No - Smoking History Smoking history: Never smoked Have you smoked in the past 12 months: No - Social History ADL: Independent History of Recent Travel: No Home Medications - Allergies Allergies/Adverse Reactions: Allergies Allergy/AdvReac Type Severity Reaction Status Date / Time Penicillins Allergy Verified 08/07/18 16:43 - Home Medications Home Medications: Ambulatory Orders Alprazolam [Xanax] 0.5 mg PO HS PRN #0 tablet 02/20/15 Amlodipine Besylate [Norvasc -] 5 mg PO DAILY #30 tablet 02/20/15 Sertraline HCl [Zoloft -] 100 mg PO DAILY #0 tablet 02/20/15 Aspirin [Aspirin EC] 81 mg PO DAILY 08/07/18 Atorvastatin Ca [Lipitor] 20 mg PO HS 08/07/18 Family Disease History - Family Disease History Family Disease History: Other: Father (TB at 40yrs ), Mother (Intestinal disease 59yrs) Review of Systems - Review of Systems Genitourinary: reports: Dysuria, Flank Pain Physical Exam- Vital Signs: Vital Signs Temperature 98.2 F 08/11/18 15:16 Pulse Rate 67 08/11/18 14:52 Respiratory Rate 18 08/11/18 14:52 Blood Pressure 125/71 08/11/18 14:52 O2 Sat by Pulse Oximetry (%) 95 08/10/18 21:00 Constitutional: Yes: No Distress, Calm Renal/: No: Bladder Distention, CVA Tenderness - Left, CVA Tenderness - Right Labs: CBC, BMP 08/11/18 07:08 08/11/18 07:08 Imaging - Results Cat Scan: Report Reviewed Problem List - Problems (1) Hydronephrosis Assessment/Plan: hydronephrosis is minimal and no stones are present. Creatinine has come down with conservative treatment. will follow Code(s): N13.30 - UNSPECIFIED HYDRONEPHROSIS Qualifiers: Hydronephrosis type: unspecified Qualified Code(s): N13.30 - Unspecified hydronephrosis
--- NOTE | 2018-08-11 16:34 | PN ---
Progress Note (short form) - Note Progress Note: Current Medications Acetaminophen (Tylenol -) 650 mg PO Q6H PRN PRN Reason: PAIN SCALE 1-5 Last Admin: 08/11/18 09:43 Dose: 650 mg Alprazolam (Xanax -) 0.25 mg PO BID [facility] Last Admin: 08/11/18 09:44 Dose: 0.25 mg Amino Acids (Prosource No Carb Liquid Pkt) 30 ml PO BID@0800,1730 [facility] Last Admin: 08/11/18 08:57 Dose: 30 ml Amlodipine Besylate (Norvasc -) 2.5 mg PO DAILY [facility] Last Admin: 08/11/18 09:42 Dose: 2.5 mg Docusate Sodium (Colace -) 100 mg PO BID [facility] Last Admin: 08/11/18 09:41 Dose: 100 mg Escitalopram Oxalate (Lexapro -) 20 mg PO DAILY [facility] Last Admin: 08/11/18 09:41 Dose: 20 mg Ceftriaxone Sodium 2 gm/ (Dextrose) 100 mls @ 200 mls/hr IVPB DAILY [facility]; Protocol Last Admin: 08/11/18 09:43 Dose: 200 mls/hr Potassium Chloride 10 meq/ (Dextrose/Sodium Chloride) 1,005 mls @ 75 mls/hr IVPB Q13H [facility] Last Admin: 08/11/18 11:29 Dose: Not Given Pantoprazole Sodium (Protonix -) 40 mg PO DAILY [facility] Last Admin: 08/11/18 09:42 Dose: 40 mg Polyethylene Glycol (Miralax (For Daily Use) -) 17 gm PO DAILY [facility] Last Admin: 08/11/18 09:41 Dose: 17 gm Laboratory Results - last 24 hr 08/11/18 08/11/18 07:08 07:08 WBC 10.7 H RBC 3.20 L Hgb 10.1 L Hct 30.1 L MCV 94.0 MCH 31.7 MCHC 33.7 RDW 14.2 Plt Count 129 L D MPV 8.9 D Sodium 144 Potassium 3.4 L Chloride 110 H Carbon Dioxide 27 Anion Gap 7 L BUN 22 H Creatinine 1.1 Creat Clearance w eGFR 47.79 Random Glucose 82 Calcium 7.8 L Ferritin 170.3 Vitamin B12 1680 H Vital Signs Temperature 98.2 F 08/11/18 15:16 Pulse Rate 67 08/11/18 14:52 Respiratory Rate 18 08/11/18 14:52 Blood Pressure 125/71 08/11/18 14:52 O2 Sat by Pulse Oximetry (%) 95 08/10/18 21:00 CC; migratory abd pains ``````````````````````````` skin--good color eyes--anicteric heart--RR lungs--clear abd--soft, BS+; minimal tenderness ext--no edema neuro--anxious, alert, lucid; speech is clear; moves all extrem's ````````````````````````````````````````````````` Summ > Gm neg Uro/sepsis--fully sensitive E Coli; cont IV Ceph (see ID note) for at least 7 days > rt Hydronephrosis--minimal; seen by urology; no action to be taken; to be f/u as OP > Low Potassium--replenish as needed > constipation--on Colace & Miralax > Htn--BP okay now > dehydration--Bun/cr okay; stop IVF > Anemia--H/H better; Ferritin & B12 okay > Low PLT--improved count > abd pain--chronic? due to longstanding mesenteric ischemia > High LFTs--resolved; is off statin for now ~~~~~~~~~~~~~~~~~~~ Dr Scott Problem List - Problems (1) Neutrophilic leukocytosis Code(s): D72.9 - DISORDER OF WHITE BLOOD CELLS, UNSPECIFIED (2) UTI (urinary tract infection), bacterial Code(s): N39.0 - URINARY TRACT INFECTION, SITE NOT SPECIFIED; A49.9 - BACTERIAL INFECTION, UNSPECIFIED (3) Bacteremia Code(s): R78.81 - BACTEREMIA (4) Hypertension Code(s): I10 - ESSENTIAL (PRIMARY) HYPERTENSION Qualifiers: Hypertension type: essential hypertension Qualified Code(s): I10 - Essential (primary) hypertension (5) Renal insufficiency Code(s): N28.9 - DISORDER OF KIDNEY AND URETER, UNSPECIFIED (6) Hyponatremia Code(s): E87.1 - HYPO-OSMOLALITY AND HYPONATREMIA (7) Hypokalemia Code(s): E87.6 - HYPOKALEMIA (8) Thrombocytopenia Code(s): D69.6 - THROMBOCYTOPENIA, UNSPECIFIED (9) Renal calculi Code(s): N20.0 - CALCULUS OF KIDNEY (10) Hydronephrosis Code(s): N13.30 - UNSPECIFIED HYDRONEPHROSIS Qualifiers: Hydronephrosis type: unspecified Qualified Code(s): N13.30 - Unspecified hydronephrosis (11) Pain, abdominal, epigastric Code(s): R10.13 - EPIGASTRIC PAIN (12) Elevated liver enzymes Code(s): R74.8 - ABNORMAL LEVELS OF OTHER SERUM ENZYMES (13) Lipidemia Code(s): E78.5 - HYPERLIPIDEMIA, UNSPECIFIED Qualifiers: Hyperlipidemia type: unspecified Qualified Code(s): E78.5 - Hyperlipidemia , unspecified (14) Protein calorie malnutrition Code(s): E46 - UNSPECIFIED PROTEIN-CALORIE MALNUTRITION Qualifiers: Protein-calorie malnutrition severity: mild Qualified Code(s): E44.1 - Mild protein-calorie malnutrition (15) Anxiety and depression Code(s): F41.8 - OTHER SPECIFIED ANXIETY DISORDERS (16) Feeding difficulty Code(s): R63.3 - FEEDING DIFFICULTIES (17) Multiple thyroid nodules Code(s): E04.2 - NONTOXIC MULTINODULAR GOITER
[2018-08-11] MEDS ORDERED: POTASSIUM CHLORIDE TABS 20 MEQ TABLET.ER (FP) PO ONE (16:45)
--- NOTE | 2018-08-11 19:01 | PN ---
Progress Note, Physician History of Present Illness: Awake, alert C/O chronic epigastric pain No c/o dysuria No fever/ chills BC E.coli Tolerating cephalosporin w/o adverse rxn - Current Medication List Current Medications: Active Medications Acetaminophen (Tylenol -) 650 mg PO Q6H PRN PRN Reason: PAIN SCALE 1-5 Last Admin: 08/11/18 09:43 Dose: 650 mg Amino Acids (Prosource No Carb Liquid Pkt) 30 ml PO BID@0800,1730 [facility] Last Admin: 08/11/18 17:25 Dose: 30 ml Amlodipine Besylate (Norvasc -) 2.5 mg PO DAILY [facility] Last Admin: 08/11/18 09:42 Dose: 2.5 mg Docusate Sodium (Colace -) 100 mg PO BID [facility] Last Admin: 08/11/18 09:41 Dose: 100 mg Escitalopram Oxalate (Lexapro -) 20 mg PO DAILY [facility] Last Admin: 08/11/18 09:41 Dose: 20 mg Ceftriaxone Sodium 2 gm/ (Dextrose) 100 mls @ 200 mls/hr IVPB DAILY [facility]; Protocol Last Admin: 08/11/18 09:43 Dose: 200 mls/hr Lorazepam (Ativan -) 0.5 mg PO DAILY [facility] Mirtazapine (Remeron -) 7.5 mg PO HS [facility] Pantoprazole Sodium (Protonix -) 40 mg PO DAILY [facility] Last Admin: 08/11/18 09:42 Dose: 40 mg Polyethylene Glycol (Miralax (For Daily Use) -) 17 gm PO DAILY [facility] Last Admin: 08/11/18 09:41 Dose: 17 gm - Objective Vital Signs: Vital Signs Temperature 98.2 F 08/11/18 15:16 Pulse Rate 67 08/11/18 14:52 Respiratory Rate 18 08/11/18 14:52 Blood Pressure 125/71 08/11/18 14:52 O2 Sat by Pulse Oximetry (%) 96 08/11/18 09:00 Constitutional: Yes: No Distress Cardiovascular: Yes: Regular Rate and Rhythm, S1, S2 Respiratory: Yes: CTA Bilaterally Gastrointestinal: Yes: Normal Bowel Sounds, Soft Edema: No Labs: CBC, BMP 08/11/18 07:08 08/11/18 07:08 Assessment/Plan Gram Negative bacteremia/ sepsis UTI/sepsis secondary to source Leukocytosis improved Thrombocytopenia Azotemia- improved PCN allergy Continue ceftriaxone
[2018-08-11] MEDS: MIRTAZAPINE 15 MG TABLET (FP) PO SCH (21:49)
[2018-08-12 06:08] LABS: SERUM IRON SATURATION 11 % (15-55); TOTAL IRON BINDING CAPACITY 188 ug/dL (250-450); UIBC 168 ug/dL (118-369)
[2018-08-12 09:02] LABS: ANION GAP 10 MMOL/L (8-16); BLOOD UREA NITROGEN 21 mg/dL (7-18); CHLORIDE 109 mmol/L (98-107); CO2 26 mmol/L (21-32); CREATININE 0.9 mg/dL (0.55-1.3); GLUCOSE,RANDOM 70 mg/dL (74-106); MAGNESIUM 1.6 mg/dL (1.8-2.4); POTASSIUM 3.5 mmol/L (3.5-5.1); SODIUM 146 mmol/L (136-145)
[2018-08-12] MEDS ORDERED: PT OWN MED DRAWER 7, Y5N ONE (10:25)
[2018-08-12] MEDS ORDERED: DEXTROSE 5%-WATER 100 ML IVPB ONE (10:25)
[2018-08-12] MEDS: amLODIPine BESYLATE 2.5 MG TABLET (FP) PO SCH (10:27)
[2018-08-12] MEDS: CEFTRIAXONE 2 GM in DEXTROSE 5%-WATER 100 ML IVPB SCH (10:27)
[2018-08-12] MEDS: DOCUSATE SODIUM 100 MG CAPSULE (FP) PO SCH (10:28)
[2018-08-12] MEDS: ESCITALOPRAM OXALATE 20 MG TABLET (FP) PO SCH (10:28)
[2018-08-12] MEDS: POLYETHYLENE GLYCOL 3350 119 GM BTL PO SCH (10:28)
[2018-08-12] MEDS: LORazepam 0.5 MG TABLET PO SCH (10:28)
[2018-08-12] MEDS: PANTOPRAZOLE 40 MG TABLET (FP) PO SCH (10:28)
[2018-08-12] MEDS: AMINO ACIDS/PROTEIN HYDROLYS 30 ML LIQUID.PKT PO SCH ×2 (10:30→17:43)
[2018-08-12] MEDS ORDERED: MAGNESIUM SULF 50% (8.12 MEQ/2 ML-1 GM VIAL) IVPB ONE (15:59)
--- NOTE | 2018-08-12 16:04 | PN ---
Progress Note (short form) - Note Progress Note: Current Medications Acetaminophen (Tylenol -) 650 mg PO Q6H PRN PRN Reason: PAIN SCALE 1-5 Last Admin: 08/11/18 09:43 Dose: 650 mg Amino Acids (Prosource No Carb Liquid Pkt) 30 ml PO BID@0800,1730 [facility] Last Admin: 08/12/18 10:30 Dose: 30 ml Amlodipine Besylate (Norvasc -) 2.5 mg PO DAILY [facility] Last Admin: 08/12/18 10:27 Dose: 2.5 mg Escitalopram Oxalate (Lexapro -) 20 mg PO DAILY [facility] Last Admin: 08/12/18 10:28 Dose: 20 mg Ceftriaxone Sodium 2 gm/ (Dextrose) 100 mls @ 200 mls/hr IVPB DAILY [facility]; Protocol Last Admin: 08/12/18 10:27 Dose: 200 mls/hr Lorazepam (Ativan -) 0.5 mg PO DAILY [facility] Last Admin: 08/12/18 10:28 Dose: 0.5 mg Magnesium Sulfate (Magnesium Sulfate) 2 gm IVPB ONCE ONE Stop: 08/12/18 16:00 Mirtazapine (Remeron -) 7.5 mg PO HS [facility] Last Admin: 08/11/18 21:49 Dose: 7.5 mg Pantoprazole Sodium (Protonix -) 40 mg PO DAILY [facility] Last Admin: 08/12/18 10:28 Dose: 40 mg Polyethylene Glycol (Miralax (For Daily Use) -) 17 gm PO DAILY [facility] Last Admin: 08/12/18 10:28 Dose: 17 gm Laboratory Results - last 24 hr 08/11/18 08/12/18 07:08 07:30 Sodium 146 H Potassium 3.5 Chloride 109 H Carbon Dioxide 26 Anion Gap 10 BUN 21 H Creatinine 0.9 Creat Clearance w eGFR > 60 Random Glucose 70 L Calcium 8.0 L Magnesium 1.6 L Iron 20 L TIBC 188 L Iron Saturation 11 L Vital Signs Temperature 98.4 F 08/12/18 14:40 Pulse Rate 73 08/12/18 14:40 Respiratory Rate 17 08/12/18 14:40 Blood Pressure 124/81 08/12/18 14:40 O2 Sat by Pulse Oximetry (%) 95 08/12/18 09:00 CC; frequent BMs ``````````````````````````` skin--good color eyes--anicteric heart--RR lungs--clear abd--soft, BS+; minimal tenderness ext--no edema neuro--anxious, alert, lucid; speech is clear; moves all extrem's, in NAD ````````````````````````````````````````````````` Summ > Gm neg Uro/sepsis--fully sensitive E Coli; repeat urine culture is negative; cont IV Ceph (see ID note) for at least 7 days > rt Hydronephrosis--minimal; seen by urology; no action to be taken; to be f/u as OP > Low Potassium/mag--replenish as needed > constipation--on Colace & Miralax; now with loose BMs; will stop colace > Htn--BP okay now > dehydration--resolved > Low PLT--improved > abd pain--chronic? due to longstanding mesenteric ischemia > High LFTs--resolved; is off statin for now ~~~~~~~~~~~~~~~~~~~ Dr Scott Problem List - Problems (1) Neutrophilic leukocytosis Code(s): D72.9 - DISORDER OF WHITE BLOOD CELLS, UNSPECIFIED (2) UTI (urinary tract infection), bacterial Code(s): N39.0 - URINARY TRACT INFECTION, SITE NOT SPECIFIED; A49.9 - BACTERIAL INFECTION, UNSPECIFIED (3) Bacteremia Code(s): R78.81 - BACTEREMIA (4) Hypertension Code(s): I10 - ESSENTIAL (PRIMARY) HYPERTENSION Qualifiers: Hypertension type: essential hypertension Qualified Code(s): I10 - Essential (primary) hypertension (5) Renal insufficiency Code(s): N28.9 - DISORDER OF KIDNEY AND URETER, UNSPECIFIED (6) Hyponatremia Code(s): E87.1 - HYPO-OSMOLALITY AND HYPONATREMIA (7) Hypokalemia Code(s): E87.6 - HYPOKALEMIA (8) Thrombocytopenia Code(s): D69.6 - THROMBOCYTOPENIA, UNSPECIFIED (9) Renal calculi Code(s): N20.0 - CALCULUS OF KIDNEY (10) Hydronephrosis Code(s): N13.30 - UNSPECIFIED HYDRONEPHROSIS Qualifiers: Hydronephrosis type: unspecified Qualified Code(s): N13.30 - Unspecified hydronephrosis (11) Pain, abdominal, epigastric Code(s): R10.13 - EPIGASTRIC PAIN (12) Elevated liver enzymes Code(s): R74.8 - ABNORMAL LEVELS OF OTHER SERUM ENZYMES (13) Lipidemia Code(s): E78.5 - HYPERLIPIDEMIA, UNSPECIFIED Qualifiers: Hyperlipidemia type: unspecified Qualified Code(s): E78.5 - Hyperlipidemia , unspecified (14) Protein calorie malnutrition Code(s): E46 - UNSPECIFIED PROTEIN-CALORIE MALNUTRITION Qualifiers: Protein-calorie malnutrition severity: mild Qualified Code(s): E44.1 - Mild protein-calorie malnutrition (15) Anxiety and depression Code(s): F41.8 - OTHER SPECIFIED ANXIETY DISORDERS (16) Feeding difficulty Code(s): R63.3 - FEEDING DIFFICULTIES (17) Multiple thyroid nodules Code(s): E04.2 - NONTOXIC MULTINODULAR GOITER
--- NOTE | 2018-08-12 18:52 | PN ---
Progress Note, Physician History of Present Illness: Awake, alert + loose BM today C/O chronic epigastric pain No c/o dysuria No fever/ chills BC E.coli Tolerating cephalosporin w/o adverse rxn - Current Medication List Current Medications: Active Medications Acetaminophen (Tylenol -) 650 mg PO Q6H PRN PRN Reason: PAIN SCALE 1-5 Last Admin: 08/11/18 09:43 Dose: 650 mg Amino Acids (Prosource No Carb Liquid Pkt) 30 ml PO BID@0800,1730 [facility] Last Admin: 08/12/18 17:43 Dose: 30 ml Amlodipine Besylate (Norvasc -) 2.5 mg PO DAILY [facility] Last Admin: 08/12/18 10:27 Dose: 2.5 mg Escitalopram Oxalate (Lexapro -) 20 mg PO DAILY [facility] Last Admin: 08/12/18 10:28 Dose: 20 mg Ceftriaxone Sodium 2 gm/ (Dextrose) 100 mls @ 200 mls/hr IVPB DAILY [facility]; Protocol Last Admin: 08/12/18 10:27 Dose: 200 mls/hr Lorazepam (Ativan -) 0.5 mg PO DAILY [facility] Last Admin: 08/12/18 10:28 Dose: 0.5 mg Mirtazapine (Remeron -) 7.5 mg PO HS [facility] Last Admin: 08/11/18 21:49 Dose: 7.5 mg Pantoprazole Sodium (Protonix -) 40 mg PO DAILY [facility] Last Admin: 08/12/18 10:28 Dose: 40 mg Polyethylene Glycol (Miralax (For Daily Use) -) 17 gm PO DAILY [facility] Last Admin: 08/12/18 10:28 Dose: 17 gm - Objective Vital Signs: Vital Signs Temperature 98.2 F 08/12/18 18:12 Pulse Rate 88 08/12/18 18:12 Respiratory Rate 18 08/12/18 18:12 Blood Pressure 124/62 08/12/18 18:12 O2 Sat by Pulse Oximetry (%) 95 08/12/18 09:00 Constitutional: Yes: No Distress Eyes: Yes: Conjunctiva Clear Cardiovascular: Yes: Regular Rate and Rhythm, S1, S2 Respiratory: Yes: CTA Bilaterally Gastrointestinal: Yes: Normal Bowel Sounds, Soft Edema: No Labs: CBC, BMP 08/11/18 07:08 08/12/18 07:30 Assessment/Plan Gram Negative bacteremia/ sepsis UTI/sepsis secondary to source Leukocytosis improved Thrombocytopenia Azotemia- improved PCN allergy Continue ceftriaxone. Complete 7d IV abx, followed by ora Discussed with son at bedside
[2018-08-12] MEDS: MIRTAZAPINE 15 MG TABLET (FP) PO SCH (22:02)
[2018-08-13 07:50] LABS: HEMATOCRIT 29.6 % (32.4-45.2); HEMOGLOBIN 10.1 GM/dL (10.7-15.3); MEAN CELL VOLUME 94.1 fl (80-96); MEAN PLT VOLUME 8.3 fl (7.5-11.1); PLATELET COUNT 210 K/MM3 (134-434); RBC 3.15 M/mm3 (3.60-5.2); RDW 14.2 % (11.6-15.6); WHITE BLOOD COUNT 10.1 K/mm3 (4.0-10.0)
[2018-08-13] MEDS: AMINO ACIDS/PROTEIN HYDROLYS 30 ML LIQUID.PKT PO SCH (08:24)
[2018-08-13] MEDS ORDERED: DEXTROSE 5%-WATER 100 ML IVPB ONE (09:09)
[2018-08-13] MEDS: PANTOPRAZOLE 40 MG TABLET (FP) PO SCH (09:11)
[2018-08-13] MEDS: amLODIPine BESYLATE 2.5 MG TABLET (FP) PO SCH (09:11)
[2018-08-13] MEDS: LORazepam 0.5 MG TABLET PO SCH (09:11)
[2018-08-13] MEDS: ESCITALOPRAM OXALATE 20 MG TABLET (FP) PO SCH (09:11)
[2018-08-13] MEDS: POLYETHYLENE GLYCOL 3350 119 GM BTL PO SCH (09:12)
[2018-08-13] MEDS: CEFTRIAXONE 2 GM in DEXTROSE 5%-WATER 100 ML IVPB SCH (09:12)
[2018-08-13 09:13] LABS: ANION GAP 8 MMOL/L (8-16); BLOOD UREA NITROGEN 26 mg/dL (7-18); CALCIUM 7.8 mg/dL (8.5-10.1); CHLORIDE 108 mmol/L (98-107); CO2 27 mmol/L (21-32); CREATININE 1.1 mg/dL (0.55-1.3); GLUCOSE,RANDOM 72 mg/dL (74-106); MAGNESIUM 2.1 mg/dL (1.8-2.4); POTASSIUM 3.7 mmol/L (3.5-5.1); SODIUM 142 mmol/L (136-145)
[2018-08-13 14:49] VITALS: BP 124/73; PULSE 76; TEMP 98.6
--- NOTE | 2018-08-13 15:18 | DS ---
Physical Examination Vital Signs: Vital Signs Temperature 98.6 F 08/13/18 14:48 Pulse Rate 76 08/13/18 14:48 Respiratory Rate 19 08/13/18 14:48 Blood Pressure 124/73 08/13/18 14:48 O2 Sat by Pulse Oximetry (%) 95 08/13/18 09:00 Constitutional: Yes: Anxious Eyes: Yes: Conjunctiva Clear HENT: Yes: WNL Cardiovascular: Yes: Regular Rate and Rhythm Respiratory: Yes: CTA Bilaterally Gastrointestinal: Yes: Normal Bowel Sounds, Soft ...Rectal Exam: Yes: Deferred Renal/: Yes: WNL Extremities: Yes: WNL Edema: No Integumentary: Yes: WNL Neurological: Yes: Alert ...Motor Strength: WNL Psychiatric: Yes: WNL Labs: CBC, BMP 08/13/18 07:00 08/13/18 07:00 Discharge Summary Reason For Visit: PYELONEPHRITIS\SEPSIS Current Active Problems Bacteremia (Acute) Elevated liver enzymes (Acute) Failure to thrive in adult (Acute) Feeding difficulty (Acute) History of kidney stones (Acute) Hydronephrosis (Acute) Hypokalemia (Acute) Hyponatremia (Acute) Lipidemia (Acute) Multiple thyroid nodules (Acute) Neutrophilic leukocytosis (Acute) Pain, abdominal, epigastric (Acute) Protein calorie malnutrition (Acute) Pyelonephritis (Acute) Renal insufficiency (Acute) Sepsis (Acute) Thrombocytopenia (Acute) UTI (urinary tract infection), bacterial (Acute) Rt renal artery stenosis mesenteric atherosclerosis depression anxiety Hospital Course: 78 yo F with hx of UTI and renal stones; admitted for vague complaints; found to be dehydrated and hypotensive; UA suggestive of UTI. Cultures were (+) for E. Coli (sensitive to all Abs) started on Rocephin (see by ID) repeat Urine culture negative; repeat BC negative after 24hrs; She c/o intermeittent abd pains which seem to have dimnished by discharge date; abd exam was non surgical. Patient remained stable throughout her stay; her azotemia improved; she was given laxatives and electrolytes replensished. She was discharged on PO Abs; and psych meds adjusted and will f/u in 7-10 days Condition: Guarded - Instructions Diet, Activity, Other Instructions: balanced diet soft foods drink plenty of liquids complete anti-biotic for 7 days Referrals: Jorge Kern MD [Primary Care Provider] - Disposition: VNS/HOME HEALTH CARE - Home Medications Comprehensive Discharge Medication List: Ambulatory Orders Alprazolam [Xanax] 0.5 mg PO HS PRN #0 tablet 02/20/15 Amlodipine Besylate [Norvasc -] 5 mg PO DAILY #30 tablet 02/20/15 Aspirin [Aspirin EC] 81 mg PO DAILY 08/07/18 Atorvastatin Ca [Lipitor] 20 mg PO HS 08/07/18 Cephalexin [Keflex] 500 mg PO BID 7 Days #14 capsule 08/13/18 Escitalopram Oxalate [Lexapro -] 20 mg PO DAILY 30 Days #30 tablet 08/13/18 Mirtazapine [Remeron -] 7.5 mg PO HS #30 tablet 08/13/18 Omeprazole 40 mg PO DAILY #30 tablet. 08/13/18
--- NOTE | 2018-08-13 17:22 | PN ---
Progress Note, Physician History of Present Illness: Awake, alert OOB in chair Non toxic apearing No c/o dysuria No fever/ chills BC E.coli Repeat BC no growth Tolerating cephalosporin w/o adverse rxn - Objective Vital Signs: Vital Signs Temperature 98.6 F 08/13/18 14:48 Pulse Rate 76 08/13/18 14:48 Respiratory Rate 19 08/13/18 14:48 Blood Pressure 124/73 08/13/18 14:48 O2 Sat by Pulse Oximetry (%) 95 08/13/18 09:00 Constitutional: Yes: No Distress Cardiovascular: Yes: Regular Rate and Rhythm, S1, S2 Respiratory: Yes: CTA Bilaterally Gastrointestinal: Yes: Normal Bowel Sounds, Soft Edema: No Labs: CBC, BMP 08/13/18 07:00 08/13/18 07:00 Assessment/Plan Gram Negative bacteremia/ sepsis UTI/sepsis secondary to source Leukocytosis resolved Thrombocytopenia resolved Azotemia- resolved PCN allergy Substitute Keflex 500mg po bid x 7d Discussed with patient's daughter at bedside
== END 2018-08-13 15:39 | disposition home health service (06) | DRG 872 ==
LOC: JER 16:36 → JERBED 18:14 → J5S 08-08 13:47
PROVIDERS: ADMIT Internal Medicine; ATTEND Internal Medicine
DX: A41.51 Sepsis due to Escherichia coli [E. coli] (principal); N39.0 Urinary tract infection, site not specified; E87.1 Hypo-osmolality and hyponatremia; E44.1 Mild protein-calorie malnutrition; N13.6 Pyonephrosis; K55.1 Chronic vascular disorders of intestine; Z68.1 Body mass index [BMI] 19.9 or less, adult; D72.9 Disorder of white blood cells, unspecified; I10 Essential (primary) hypertension; N28.9 Disorder of kidney and ureter, unspecified; D69.6 Thrombocytopenia, unspecified; E87.6 Hypokalemia; E04.2 Nontoxic multinodular goiter; R63.3 Feeding difficulties; F41.8 Other specified anxiety disorders; E78.5 Hyperlipidemia, unspecified; R74.8 Abnormal levels of other serum enzymes; R10.13 Epigastric pain; E86.0 Dehydration; D64.9 Anemia, unspecified; I70.1 Atherosclerosis of renal artery; K21.9 Gastro-esophageal reflux disease without esophagitis; M81.0 Age-related osteoporosis without current pathological fracture; R62.7 Adult failure to thrive; M54.5 Low back pain; K59.00 Constipation, unspecified; Z88.0 Allergy status to penicillin
CPT/HCPCS: 36415; 71045-TC-FY; 74176; 80048; 80053; 80061; 81003; 81015; 82272; 82607; 82728; 83540; 83550; 83605; 83721; 83735; 84443; 85025; 85027; 87040; 87086; 87186; 90670; 93005; 93010; 99283-25; J7030

== ENCOUNTER 2020-11-10 17:14 | Emergency (ER) | payer OTHER, MEDICARE ==
[2020-11-10 17:24] VITALS: TEMP 98
[2020-11-10 17:27] VITALS: BMI 27.4
[2020-11-10] MEDS ORDERED: ACETAMINOPHEN 500 MG TABLET (FP) PO ONE (18:32)
[2020-11-10] MEDS ORDERED: ACETAMINOPHEN INJECTION 100 ML IVPB ONE (18:49)
[2020-11-10 19:50] LABS: BASO % 0.5 % (0-2.0); EOS % 0.3 % (0-4.5); HEMATOCRIT 33.8 % (32.4-45.2); HEMOGLOBIN 11.4 GM/dL (10.7-15.3); LYMPH % 16.5 % (8-40); MCH 32.7 pg (25.7-33.7); MCHC 33.6 g/dl (32.0-36.0); MEAN CELL VOLUME 97.2 fl (80-96); MEAN PLT VOLUME 9.5 fl (7.5-11.1); NEUT % 78.7 % (42.8-82.8); PLATELET COUNT 158 K/MM3 (134-434); RBC 3.47 M/mm3 (3.60-5.2); RDW 13.1 % (11.6-15.6); WHITE BLOOD COUNT 7.9 K/mm3 (4.0-10.0)
[2020-11-10 19:56] LABS: EPI CELLS 2 /uL (0-25.1); HYALINE CASTS 0 /uL (0-3.1); URINE APPEARANCE CLEAR; URINE BACTERIA 20 /uL (0-1359); URINE BILIRUBIN NEGATIVE (NEGATIVE); URINE COLOR YELLOW; URINE GLUCOSE (UA) NEGATIVE (NEGATIVE); URINE KETONE NEGATIVE (NEGATIVE); URINE LEUK ESTERASE NEGATIVE (NEGATIVE); URINE NITRITE NEGATIVE (NEGATIVE); URINE PROTEIN NEGATIVE (NEGATIVE); URINE RBC 2 /uL (0-23.9); URINE UROBILINOGEN 0.2 mg/dL (0.2-1.0); URINE WBC 1 /uL (0-25.8)
[2020-11-10 20:05] LABS: ALBUMIN 4.3 g/dl (3.4-5.0); BLOOD UREA NITROGEN 24.8 mg/dL (7-18); CALCIUM 9.5 mg/dL (8.5-10.1)
[2020-11-10 20:09] LABS: CREATININE 1.2 mg/dL (0.55-1.3)
[2020-11-10 20:10] LABS: BILIRUBIN,TOTAL 0.7 mg/dL (0.2-1); TOT PROT 7.8 g/dl (6.4-8.2)
[2020-11-10] MEDS ORDERED: SODIUM CHLORIDE 0.9% 500 ML INFUS.BAG IV ONE (20:11)
[2020-11-10 20:18] LABS: INR 0.95 (0.83-1.09); PROTHROMBIN TIME (PATIENT) 11.5 SEC (9.7-13.0)
[2020-11-10 20:20] LABS: ACTIVATED PTT 22.6 SECONDS (25.2-36.5)
[2020-11-10 23:01] VITALS: BP 146/81; PULSE 76
== END 2020-11-10 23:56 | disposition home or self-care (01) ==
LOC: JER 17:14
DX: R10.31 Right lower quadrant pain (principal)
CPT/HCPCS: 36415; 74177-TC; 80053; 81003; 83605; 85025; 85610; 85730; 87086; 99285-25; Q9967

== ENCOUNTER 2021-11-17 11:31 | Emergency (ER) | payer OTHER, MEDICARE ==
[2021-11-17 11:48] VITALS: BP 144/77; PULSE 62; TEMP 98.4; BMI 19.5
== END 2021-11-17 13:41 | disposition home or self-care (01) ==
LOC: FER 11:31
DX: R22.41 Localized swelling, mass and lump, right lower limb (principal); R21 Rash and other nonspecific skin eruption
CPT/HCPCS: 93971-TC; 99284-25

== ENCOUNTER 2022-03-17 08:48 | Day surgery (SDC) | payer OTHER, MEDICARE ==
[2022-03-03 17:06] VITALS: BMI 19.5
[2022-03-17] MEDS: CYCLOPENTOLATE 2% OPHTH SOLN 2 ML BOTTLE ONE ×3 (10:15→10:25)
[2022-03-17] MEDS: CIPROFLOXACIN 0.3% EYE DROPS 5 ML BOTTLE ONE ×3 (10:15→10:25)
[2022-03-17] MEDS: TROPICAMIDE 1% OPHTH SOLN 15 ML BOTTLE ONE ×3 (10:15→10:25)
[2022-03-17] MEDS: PHENYLEPHRINE 2.5% OPHTH SOLN 15 ML BOTTLE ONE ×3 (10:15→10:25)
[2022-03-17] MEDS ORDERED: NEO/POLYMYX B SULF/DEXAMETH OPHTHALMIC 5ML BOTTLE ONE (11:53)
[2022-03-17] MEDS ORDERED: LIDOCAINE 1% P/F 10 MG/ML VIAL ONE (11:53)
[2022-03-17] MEDS ORDERED: CARBACHOL 0.01% INTRA-OCULAR 1.5 ML VIAL ONE (11:53)
[2022-03-17] MEDS ORDERED: BSS (NA/CA/MG/K) BALANCED SALT SOLUTION OPHTH SOLN 15 ML BOTTLE ONE (11:53)
[2022-03-17] MEDS ORDERED: TETRACAINE 0.5% OPHTH SOLN 2 ML BOTTLE ONE (11:53)
[2022-03-17] MEDS ORDERED: MIDAZOLAM HCL 2 MG/2 ML SINGLE DOSE VIAL ONE (12:04)
[2022-03-17 13:25] VITALS: TEMP 97.7
[2022-03-17 13:29] VITALS: BP 148/81; PULSE 56
== END 2022-03-17 13:15 | disposition home or self-care (01) ==
LOC: FASU 08:48
PROVIDERS: ATTEND Ophthalmology
PROC: 08RJ3JZ Replacement of Right Lens with Synthetic Substitute, Percutaneous Approach (ICD-10-PCS; principal; 2022-03-17 12:12)
DX: H26.8 Other specified cataract (principal)
CPT/HCPCS: 66984; V2632

== ENCOUNTER 2022-04-07 08:42 | Day surgery (SDC) | payer OTHER, MEDICARE ==
[2022-04-02 10:41] VITALS: BMI 19.5
[2022-04-07] MEDS ORDERED: CYCLOPENTOLATE 2% OPHTH SOLN 2 ML BOTTLE ONE (09:34)
[2022-04-07] MEDS ORDERED: CIPROFLOXACIN 0.3% EYE DROPS 5 ML BOTTLE ONE (09:34)
[2022-04-07] MEDS ORDERED: PHENYLEPHRINE 2.5% OPHTH SOLN 15 ML BOTTLE ONE (09:34)
[2022-04-07] MEDS ORDERED: TROPICAMIDE 1% OPHTH SOLN 15 ML BOTTLE ONE (09:34)
[2022-04-07] MEDS ORDERED: CYCLOPENTOLATE 2% OPHTH SOLN 2 ML BOTTLE OS ONE ×3 (09:55→10:05)
[2022-04-07] MEDS ORDERED: PHENYLEPHRINE 2.5% OPHTH SOLN 15 ML BOTTLE OS ONE ×3 (09:55→10:05)
[2022-04-07] MEDS ORDERED: TROPICAMIDE 1% OPHTH SOLN 15 ML BOTTLE OS ONE ×3 (09:55→10:05)
[2022-04-07] MEDS ORDERED: CIPROFLOXACIN 0.3% EYE DROPS 5 ML BOTTLE OS ONE ×3 (09:55→10:05)
[2022-04-07] MEDS ORDERED: MIDAZOLAM HCL 2 MG/2 ML SINGLE DOSE VIAL ONE (10:41)
[2022-04-07] MEDS ORDERED: ACETYLCHOLINE 1:100 INTRA-OCUL 20 MG/2 ML KIT ONE (11:09)
[2022-04-07 11:30] VITALS: TEMP 97.9
[2022-04-07 11:50] VITALS: BP 150/72; PULSE 62
[2022-04-07] MEDS ORDERED: NEO/POLYMYX B SULF/DEXAMETH OPHTHALMIC 5ML BOTTLE ONE (12:28)
[2022-04-07] MEDS ORDERED: LIDOCAINE HCL/PF 1% SDV 5ML VIAL ONE (12:28)
[2022-04-07] MEDS ORDERED: BSS (NA/CA/MG/K) BALANCED SALT SOLUTION OPHTH SOLN 15 ML BOTTLE ONE (12:28)
[2022-04-07] MEDS ORDERED: CARBACHOL 0.01% INTRA-OCULAR 1.5 ML VIAL ONE (12:28)
[2022-04-07] MEDS ORDERED: TETRACAINE 0.5% OPHTH SOLN 2 ML BOTTLE ONE (12:28)
== END 2022-04-07 11:52 | disposition home or self-care (01) ==
LOC: FASU 08:42
PROVIDERS: ATTEND Ophthalmology
PROC: 08RK3JZ Replacement of Left Lens with Synthetic Substitute, Percutaneous Approach (ICD-10-PCS; principal; 2022-04-07 10:53)
DX: H26.8 Other specified cataract (principal)
CPT/HCPCS: 66984; V2632

== ENCOUNTER 2023-08-28 19:02 | Emergency (ER) | payer OTHER, MEDICARE ==
[2023-08-28 19:27] VITALS: BP 153/90; PULSE 58; RESP 16; BMI 18.3
[2023-08-28 19:40] VITALS: TEMP 99.6
== END 2023-08-28 21:01 | disposition home or self-care (01) ==
LOC: FER 19:02
DX: S70.02XA Contusion of left hip, initial encounter (principal); W01.0XXA Fall on same level from slipping, tripping and stumbling without subsequent striking against object, initial encounter; Y92.9 Unspecified place or not applicable
CPT/HCPCS: 73502-TC-LT-FY; 99283-25